=== PATIENT | male | born 1965 | race Caucasian/White ===

== ENCOUNTER → 2017-04-17 | Outpatient (CLI) | payer BC ==
[2017-04-17 09:52] LABS: ESTIMATED AVERAGE GLUCOSE 143 mg/dl; HA1C FLAG Normal (Normal)
[2017-04-17 09:59] LABS: CHOLESTEROL/HDL RATIO 3.4; THYROID STIMULATING HORMONE 1.47 uIu/ml (0.300-4.500)
== END | disposition home or self-care (01) ==
LOC: C.LAB1850 07:14
PROVIDERS: ATTEND Nurse Practitioner Family
DX: E11.65 Type 2 diabetes mellitus with hyperglycemia (principal)

== ENCOUNTER → 2017-09-09 | Outpatient (CLI) | payer BC ==
[2017-09-10 07:44] LABS: ESTIMATED AVERAGE GLUCOSE 143 mg/dl; HA1C FLAG Normal (Normal)
== END | disposition home or self-care (01) ==
LOC: C.LAB1850 15:23
PROVIDERS: ATTEND Nurse Practitioner Family
DX: E11.65 Type 2 diabetes mellitus with hyperglycemia (principal)

== ENCOUNTER 2017-11-02 14:09 | Emergency (ER) | payer OTHER, BC ==
[~2017-11-02] VITALS: Ht 180.3 cm; Wt 80.0 kg
[2017-11-02 14:13] VITALS: TEMP 36.6; Ht 180.3 cm; Wt 80.0 kg
[2017-11-02] MEDS ORDERED: KETOROLAC TROMETHAMINE 60 MG/2 ML VIAL IM STA (14:37)
--- NOTE | 2017-11-02 14:46 | EMERGENCY ROOM VISIT NOTE ---
ED Visit Note First contact with patient: 14:24 CHIEF COMPLAINT: "My back" HISTORY OF PRESENT ILLNESS: This 52-year-old male patient presents to the emergency department, ambulatory, complaining of pain in the low back which began 3 days ago after an injury at work. The patient states he was pulling on a water softener take which was approximately 180 pounds, and when he stepped on the top step, it was icy and he slipped. He states he pulled the muscles in his back. He has been working over the past 2 days, but states today as he has been lying still and having decreased activity, the pain has been worsening. He does report a history of back injury several years ago which also occurred at work , which was very similar in nature to this injury. He has taken 2 doses of 600 mg ibuprofen per day without relief of the pain. He did not contact HR at the time of the injury, as he did not feel that it is as severe as it is now. The patient denies any loss of control of their bowel or bladder functions. There has been no leg numbness or weakness, and no change in sensation. No nausea or vomiting or abdominal pain. No chest pain or shortness of breath. No dysuria or increased urinary frequency. REVIEW OF SYSTEMS: A 10 system review of systems was performed with positives and pertinent negatives listed in the history of present illness. All other systems were reviewed and are negative. ALLERGIES: Bee sting MEDICATIONS: Metformin, glimepiride PMH: Diabetes SOCIAL HISTORY: The patient lives locally with family. He denies drug, alcohol use. He admits to smoking approximately one pack of cigarettes per day. PHYSICAL EXAM: VITALS: Vitals are noted on the nurse's note and reviewed by myself. Vital signs stable. GENERAL: This is a 52-year-old white male, in no acute distress, nondiaphoretic , well-developed well-nourished. SKIN: The skin was without rashes, erythema, edema, or bruising. Capillary refill less than 2 seconds. NECK: Supple without nuchal rigidity. No cervical spine tenderness. No paraspinous muscle tenderness. HEART: Regular rate and rhythm without murmurs gallops or rubs. LUNGS: Clear to auscultation bilaterally without wheezes, rales or rhonchi. ABDOMEN: Positive bowel sounds x 4. Normal tympanic percussion. Soft, nontender, without masses or organomegaly. Gallo sign negative. MUSCULOSKELETAL: No muscle atrophy, erythema, or edema noted of the back. There is no tenderness over the lumbar spinous processes. There is mild tenderness over the paraspinous muscles bilaterally. There is no tenderness over the thoracic spine, but there is tenderness of the paraspinous muscles. There are muscle spasms present. The patient is slow to move around with maximum tenderness with position changes. Positive straight leg raise test. NEURO: Patient was alert and oriented to person place and time. Normal sensation to light and sharp touch. Deep tendon reflexes 2+ in the lower extremities. Dorsalis pedis pulse 2+ bilaterally. Strength 5/5 and equal in the bilateral lower extremities. RADIOLOGY: LUMBAR SPINE 5 VIEWS CLINICAL HISTORY: Low back pain. FINDINGS: 5 views of the lumbar spine are obtained. No prior studies are available for comparison at the time of dictation. The skeletal structures are osteopenic. There is no radiographic evidence of fracture or malalignment. Vertebral body height and alignment are maintained. The transverse and spinous processes are intact. There is no evidence of spondylolysis. Tiny anterior osteophytes are seen throughout. Mild to moderate disc space narrowing is seen at L5-S1. The remaining disc spaces are maintained. The visualized bony pelvis appears intact. There is a nonobstructed abdominal bowel gas pattern. Moderate constipation is observed. Atherosclerotic calcification is noted in the abdominal aorta. IMPRESSION: 1. No acute bony abnormality is seen involving the lumbosacral spine. 2. Osteopenia and degenerative change as above. Electronically signed by: Micah Garcia M.D. 11/02/2017 3:53 PM Dictated Date/Time: 11/02/2017 3:52 PM EMERGENCY DEPARTMENT COURSE: She was seen and evaluated as above. He was given 60 mg Toradol IM, and did not note significant improvement in his symptoms. I did offer narcotic pain medication, however the patient does not have anybody to drive him. I advised him that I happy to give him stronger pain medicine or muscle relaxers if he can find a motor bus driver, but he states that he cannot. X-ray was performed and reviewed by myself and radiologist with no acute bony abnormality noted. I do suspect based on the patient's mechanism of injury and symptoms he is experiencing at this time, that he is experiencing a lumbar strain, and he is having muscle spasms which are causing the discomfort. The patient did request pain medication multiple times, and I did offer to him if he is able to find a motor bus driver. The patient is unable to find a motor bus driver or alternatively ride home, so I am unwilling to provide him with pain medication. I did offer her some Tylenol and offered to send a prescription for muscle relaxers and short course of narcotics for him to take at home. The patient is agreeable to this plan. He was given 1 g of Tylenol and prescriptions were sent to the pharmacy. Discharge instructions were reviewed, the patient was discharged home in good condition. Blood Pressure Screening: Patient was found to have a slightly elevated blood pressure due to circumstances. I do not believe that the patient requires hypertension monitoring. Patient was found to have normal blood pressure on screening and does not require follow-up. Etiologies such as lumbago, sciatica, cauda equina, epidural abscess, osteomyelitis, fracture, aortic disease, metastatic disease, infection, renal colic, gastrointestinal, as well as others were entertained. DIAGNOSIS: Lumbar strain Current/Historical Medications Scheduled Glimepiride (Glimepiride), 1 MG PO DAILY Glimepiride (Glimepiride), 2 MG PO DAILY Metformin Hcl (Glucophage), 2,000 MG PO BID Scheduled PRN Cyclobenzaprine Hcl (Flexeril), 10 MG PO TID PRN for Muscle Spasms Oxycodone Ir (Roxicodone Ir), 1 TAB PO Q4H PRN for Pain Allergies Coded Allergies: BEE STING (Unverified Allergy, Unknown, SWELLING, 12/21/15) Vital Signs Date Time Temp Pulse Resp B/P (MAP) Pulse Ox O2 Delivery O2 Flow Rate FiO2 11/02/17 16:27 76 16 115/76 98 11/02/17 14:13 36.6 57 18 168/91 98 Room Air Medications Administered Medications (Trade) Dose Ordered Sig/Mathew Route Start Time Stop Time Status Last Admin Dose Admin Ketorolac Tromethamine (Toradol Inj) 60 mg NOW STAT IM 11/02/17 14:37 11/02/17 14:39 DC 11/02/17 14:47 60 MG Acetaminophen (Tylenol Tab) 1,000 mg NOW STAT PO 11/02/17 16:10 11/02/17 16:11 DC 11/02/17 16:24 1,000 MG Departure Information Impression Primary Impression: Strain of lumbar region Dispostion Home / Self-Care Condition GOOD Prescriptions Oxycodone Ir (Roxicodone Ir) 5 Mg Tab 1 TAB PO Q4H Y for Pain, #6 TAB For Initial Treatment Prov: Elaine Mojica PA-C 11/02/17 Cyclobenzaprine Hcl (FLEXERIL) 10 Mg Tab 10 MG PO TID Y for Muscle Spasms for 5 Days, #15 TAB Prov: Elaine Mojica PA-C 11/02/17 Referrals Aleln Kerr M.D. (PCP) Patient Instructions ED Sprain Strain Lumbar, My [facility] Additional Instructions You have been treated in the Emergency Department for Back Pain. You have been prescribed OxyIR to be used for pain control. This is a narcotic medication. You cannot drive or consume alcohol while on this medicine. This medicine should only be used for pain that cannot be controlled with over-the- counter pain medicines. You have been prescribed Flexeril (cyclobenzaprine) 1 tab orally, three times per day. Do NOT exceed 30 mg (3 tabs) per day. Take your first dose at bedtime as it can make you drowsy. Always take all medications as prescribed. For pain control, you can use the following hlrh-ghl-kuxlifh medicines (if >12 yo): Ibuprofen(Motrin, Advil) may be used for fever or pain. Use 600mg every six hours as needed. Take with food. Avoid using more than 2400mg in a 24 hour period. Do not use 2400mg per day for more than three consecutive days without physician direction. Prolonged inappropriate use can lead to stomach upset or ulcers. (AND/OR) Acetaminophen(Tylenol) may be used for fever or pain. Use 1000mg every six hours as needed. Avoid using more than 3000mg in a 24 hour period. *Alternate these medications every 3-4 hours to help with pain and inflammation. If this is an acute injury, ice can be applied to the area of pain for the first 3 days to help decrease pain and inflammation. After the first 3 days, a heating pad can be used over the area for continued soothing relief. Get plenty of rest, however, avoid lying or sitting still for too long, as this can further irritate the muscles in the back. You should not participate in significant activity, but instead stay active with walking and gentle stretching. You should schedule a follow-up appointment in 2-3 days with your Primary Care Provider/Worker's compensation provider for further evaluation and treatment of your back pain. Return to the Emergency Department if your current symptoms worsen despite treatment course outlined above, or if you develop any of the following symptoms : intractable pain despite aforementioned treatment course, loss of control of your bowel or bladder, numbness or tingling in your groin, or development of a fever. Problem Qualifiers Primary Impression: Strain of lumbar region Encounter type: initial encounter Qualified Codes: S39.012A - Strain of muscle, fascia and tendon of lower back, initial encounter
[2017-11-02] MEDS ORDERED: GLIM2TAB2 PO (15:34)
[2017-11-02] MEDS ORDERED: GLIM1TAB2 PO (15:34)
[2017-11-02] MEDS ORDERED: METF1000 PO (15:34)
--- NOTE | 2017-11-02 15:55 | DIAGNOSTIC IMAGING REPORT ---
LUMBAR SPINE 5 VIEWS CLINICAL HISTORY: Low back pain. FINDINGS: 5 views of the lumbar spine are obtained. No prior studies are available for comparison at the time of dictation. The skeletal structures are osteopenic. There is no radiographic evidence of fracture or malalignment. Vertebral body height and alignment are maintained. The transverse and spinous processes are intact. There is no evidence of spondylolysis. Tiny anterior osteophytes are seen throughout. Mild to moderate disc space narrowing is seen at L5-S1. The remaining disc spaces are maintained. The visualized bony pelvis appears intact. There is a nonobstructed abdominal bowel gas pattern. Moderate constipation is observed. Atherosclerotic calcification is noted in the abdominal aorta. IMPRESSION: 1. No acute bony abnormality is seen involving the lumbosacral spine. 2. Osteopenia and degenerative change as above. Electronically signed by: Micah Garcia M.D. 11/02/2017 3:53 PM Dictated Date/Time: 11/02/2017 3:52 PM
[2017-11-02] MEDS ORDERED: ACETAMINOPHEN 500 MG TAB PO STA (16:10)
[2017-11-02] MEDS ORDERED: OXYC1TAB3 PO (16:12)
[2017-11-02] MEDS ORDERED: CYCL10TA6 PO (16:12)
[2017-11-02 16:27] VITALS: BP 115/76; PULSE 76; O2SAT 98
== END 2017-11-02 16:28 | disposition home or self-care (01) ==
LOC: C.EDB 14:13 → C.EDD 16:28
DX: S39.012A Strain of muscle, fascia and tendon of lower back, initial encounter (principal); M85.88 Other specified disorders of bone density and structure, other site; W00.2XXA Other fall from one level to another due to ice and snow, initial encounter; Y99.0 Civilian activity done for income or pay; F17.210 Nicotine dependence, cigarettes, uncomplicated

== ENCOUNTER 2021-08-18 09:26 | Observation (INO) ==
[2021-08-18] MEDS ORDERED: MoRPHine SULFATE 4 MG/ML 1 ML CARP\\VIAL IV STA ×2 (10:02→11:44)
[2021-08-18] MEDS ORDERED: ONDANSETRON INJ 2 MG/ML 2 ML VIAL IV STA (10:02)
--- NOTE | 2021-08-18 10:14 | Emergency Department Note ---
History of Present Illness General Chief complaint: Back Injury/Pain Stated complaint: BACK INJURY Time Seen by Provider: 08/18/21 09:49 History of Present Illness Maximum Pain Intensity: 9 This is a 13-year-old male that presents to the emergency department via private vehicle accompanied by female with complaints of "back injury". The patient notes that yesterday and between the hours of 2 and 2:30 PM he was walking and felt something in his back. This pain occurred while at work. He notes that initially the pain was minor however throughout the working day increased. He notes that while driving back to this area to end his shift he went to exit the truck and the pain seemed much more severe. He points to the low back as a location of pain that he currently rates as a 9/10. He notes that he went home and did not move for 12 hours secondary to the severe pain in his back. He notes that at times it will radiate into his legs to the level of the knees but that is with certain movements. At rest the pain is located in the low back. Pain is much better with rest and laying flat. He notes pain at rest is an 8/10 and with moving is a 10/10. Patient denies any fevers, chills, chest pain, shortness of breath, abdominal pain. The patient denies any lower extremity weakness, bowel or bladder incontinence, numbness or tingling in genital region. Home Medications Medication Instructions Recorded Confirmed Type Accu-Chek Fastclix Lancet Drum #408 ea NS 03/03/20 06/30/21 Rx (lancets) Accu-Chek Guide Glucose Meter #1 ea NS 03/03/20 06/30/21 Rx (blood-glucose meter) Accu-Chek Guide test strips (blood #400 ea [place] 03/07/21 06/30/21 Rx sugar diagnostic) metformin 500 mg tablet,extended 1,000 mg PO BID 90 Days #360 tab 06/30/21 08/18/21 Rx release 24 hr aspirin 81 mg tablet,delayed 81 mg PO HS 08/18/21 08/18/21 History release (Aspirin Low Dose) atorvastatin 10 mg tablet (Lipitor) 10 mg PO HS 08/18/21 08/18/21 History glimepiride 1 mg tablet (Amaryl) 2 mg PO HS 08/18/21 08/18/21 History Allergies Allergy/AdvReac Type Severity Reaction Status Date / Time bee venom protein (honey bee) Allergy Unknown SWELLING Verified 08/18/21 11:48 codeine Allergy Unknown unk Verified 08/18/21 11:48 Past Med/Surg History Medical History Diabetes mellitus, type 2 Surgical History History of bronchoscopy History of cataract surgery Family History (Updated 06/18/18 @ 13:14 by Nadine Pradhan RN) Mother Family history of diabetes mellitus Father Family history of diabetes mellitus Family hx of colon cancer Other Family hx colonic polyps Social History Smoking Status: Current every day smoker Tobacco Type: Cigarettes Cigarettes Per Day: 20 CIG DAILY; Second Hand Exposure: No; Hx Alcohol Use: No Hx Substance Use: No Preferred Language: Bulgarian Communication Ability: Effective Coding Quality Coordinator Required: No Beliefs That Will Affect Care: None Feels Safe at Home: Yes Assistive Devices: Glasses Review of Systems A total of 10 systems reviewed and were otherwise negative Physical Exam Vital Signs Vital Signs - 24 hr 08/18/21 09:42 08/18/21 11:48 08/18/21 15:00 Temperature 36.7 C Temperature Source Oral Pulse Rate 92 H Pulse Rate [Right Finger] 64 73 Pulse Rhythm Regular Pulse Strength Normal Respiratory Rate 20 20 20 Respiratory Effort / Characteristics Non-Labored Spontaneous Non-Labored Spontaneous Non-Labored Spontaneous Respiratory Depth Normal Normal Normal Respiratory Pattern Regular Regular Regular Blood Pressure 114/80 Blood Pressure [Right Arm] 129/74 135/83 Blood Pressure Mean 91 Blood Pressure Mean [Right Arm] 92 100 Blood Pressure Position Sitting Pulse Oximetry 97 95 96 Oxygen Delivery Method Room Air Room Air Room Air Sepsis Recent Fever Within 48 Hours No Sepsis New/Unexplained Change in Mental Status No Sepsis Action Taken by Nursing No Action Required 08/18/21 15:20 Temperature Temperature Source Pulse Rate Pulse Rate [Right Finger] 63 Pulse Rhythm Pulse Strength Respiratory Rate 20 Respiratory Effort / Characteristics Non-Labored Spontaneous Respiratory Depth Normal Respiratory Pattern Regular Blood Pressure Blood Pressure [Right Arm] 147/86 H Blood Pressure Mean Blood Pressure Mean [Right Arm] 106 Blood Pressure Position Pulse Oximetry 94 Oxygen Delivery Method Room Air Sepsis Recent Fever Within 48 Hours Sepsis New/Unexplained Change in Mental Status Sepsis Action Taken by Nursing VITAL SIGNS - Vital signs and nursing notes were reviewed. Stable and afebrile. GENERAL - 56-year-old male appearing his stated age who is in no acute distress but appears to be in pain and has trouble ambulating secondary to pain. Communicates well with provider and answers questions appropriately. SKIN - Without rashes. No meningeal or petechial rash. HEAD - NC/AT. LUNGS - Chest wall symmetric without accessory muscle use, intercostals retractions, or central cyanosis. Normal vesicular breath sounds CTA B/L. No wheezes, rales, or rhonchi appreciated. CARDIAC - RRR with S1/S2. No murmur, rubs, or gallops appreciated. ABDOMEN - Abdominal contour normal without pulsations or visible masses. BS normoactive all four quadrants. No tenderness, palpable masses, hepatosplenomegaly, or ascites noted. EXTREMITIES - No clubbing or peripheral cyanosis. +5/5 strength noted in UE/LE bilaterally. MUSCULOSKELETALpatient with decreased movement of the spine to include flexion and rotation secondary to pain. Patient unable to sit upright without assistance secondary to pain. No weakness. NEUROLOGIC - Cranial nerves II through XII grossly intact. Sensory intact to light touch throughout. Achilles reflex within normal limits bilaterally. Patient unable to sit at bedside without significant pain therefore assessment of patellar reflex limited. No deficits on examination. Patient neurovascularly intact. PSYCH - A&Ox3 and cooperates fully with examiner. Pt is very pleasant and interacts well with examiner. Course Administered Medications Discontinued Medications Dexamethasone Sodium Phosphate (DexamethasonePf 10 Mg/Ml Vial) 10 mg IV NOW ONE Stop: 08/18/21 15:10 Last Admin: 08/18/21 15:19 Dose: 10 mg Documented by: [id number] Ketorolac Tromethamine (Ketorolac Tromethamine 15 Mg/Ml Vial) 15 mg IV NOW STA Stop: 08/18/21 15:10 Last Admin: 08/18/21 15:19 Dose: 15 mg Documented by: [id number] Lidocaine (Lidocaine 5% 1 Patch) 1 patch TD NOW STA Stop: 08/18/21 15:10 Last Admin: 08/18/21 15:19 Dose: 1 patch Documented by: [id number] Morphine Sulfate (Morphine Sulfate 4 Mg/Ml 1 Ml Carp\\Vial) 4 mg IV NOW STA Stop: 08/18/21 10:03 Last Admin: 08/18/21 10:15 Dose: 4 mg Documented by: [id number] Morphine Sulfate (Morphine Sulfate 4 Mg/Ml 1 Ml Carp\\Vial) 4 mg IV NOW STA Stop: 08/18/21 11:45 Last Admin: 08/18/21 11:47 Dose: 4 mg Documented by: [id number] Ondansetron HCl (Ondansetron Inj 2 Mg/Ml 2 Ml Vial) 4 mg IV NOW STA Stop: 08/18/21 10:03 Last Admin: 08/18/21 10:15 Dose: 4 mg Documented by: [id number] Medical Decision Making Laboratory Data Result diagrams: 08/18/21 10:10 08/18/21 10:10 Lab Results 08/18/21 08/18/21 08/18/21 Range/Units 10:10 10:10 15:28 WBC 11.82 H (4.8-10.8) K/uL RBC 5.19 (4.7-6.1) M/uL Hgb 15.8 (14.0-18.0) g/dL Hct 46.4 (42-52) % MCV 89.4 (80-100) fL MCH 30.4 (25-34) pg MCHC 34.1 (32-36) g/dL RDW Std Deviation 46.2 (36.4-46.3) fL RDW Coeff of [place] 13.9 (11.5-14.5) % Plt Count 275 (130-400) K/uL MPV 10.9 H (7.4-10.4) fL Immature Gran % (Auto) 0.1 % Neut % (Auto) 79.8 % Lymph % (Auto) 15.6 % [place] % (Auto) 3.8 % Eos % (Auto) 0.4 % Baso % (Auto) 0.3 % Neut # (Auto) 9.43 H (1.4-6.5) K/uL Lymph # (Auto) 1.84 (1.2-3.4) K/uL [place] # (Auto) 0.45 (0.11-0.59) K/uL Eos # (Auto) 0.05 (0-0.5) K/uL Baso # (Auto) 0.04 (0-0.2) K/uL Immature Gran # (Auto) 0.01 (0.00-0.02) K/uL Sodium 138 (136-145) mmol/L Potassium 4.1 (3.5-5.1) mmol/L Chloride 110 H (98-107) mmol/L Carbon Dioxide 20 L (21-32) mmol/L Anion Gap 9.0 (3-11) BUN 13 (7-18) mg/dl Creatinine 0.95 (0.6-1.4) mg/dl Est Cr Clr Drug Dosing 92.1 ml/min Est GFR ( Amer) 103.3 ml/min Est GFR (Non-Af Amer) 89.1 ml/min BUN/Creatinine Ratio 13.2 (10-20) Glucose 168 H (70-99) mg/dl Calcium 9.3 (8.5-10.1) mg/dl Total Bilirubin 0.5 (0.2-1) mg/dl AST 10 L (15-37) U/L ALT 26 (12-78) U/L Alkaline Phosphatase 102 (45-117) U/L Total Protein 7.1 (6.4-8.2) gm/dl Albumin 3.7 (3.4-5.0) gm/dl Globulin 3.4 (2.5-4.0) gm/dl Albumin/Globulin Ratio 1.1 (0.9-2) COVID-19 Eval Order Covid19 at [facility] Imaging Data Radiologist's Impression: Lumbar Spine X-Ray 08/18/21 10:02 XR lumbar spine min 4V routine HISTORY: 56 years-old Male Low back pain acute low back pain without reported trauma COMPARISON: Lumbar spine radiographs 11/02/2017 TECHNIQUE: 5 views of the lumbar spine FINDINGS: 5 lumbar type vertebral segments are present. No acute fracture, subluxation or endplate erosion. Mild to moderate intervertebral disc space narrowing at L5-S1 with mild spondylitic spurring and [id number] facet arthrosis. Ather osclerotic plaque of the aorta. Unremarkable soft tissues. IMPRESSION: 1. No acute fracture or subluxation. 2. Degenerative changes as above. ACT 112: Negative or not required by law. The above report was generated using voice recognition software. It may contain grammatical, syntax or spelling errors. Electronically signed by: George Mcadams M.D. 08/18/2021 11:08 AM Lumbar Spine MRI 08/18/21 12:14 MR lumbar spine wo con CLINICAL HISTORY: Lifting injury at work. Patient reports sudden onset of severe low back pain radiating to both thighs suggested, left greater than right. Patient states that he cannot walk. COMPARISON: None. TECHNIQUE: Multiplanar multisequence images of the Lumbar Spine were performed without contrast. FINDINGS: There is no evidence for vertebral body fracture. The heights of the vertebral bodies are maintained. The vertebral bodies are in anatomic alignment. Homogeneous marrow signal is seen without evidence for marrow edema or marrow replacement. T12-L1: The disc space height is maintained. There are no focal disc protrusions or extrusions identified. The thecal sac and epidural fat are maintained. The neural foramen are patent bilaterally. There is no evidence for nerve root encroachment. The facet joints are within normal limits. L1-2: The disc space height is maintained. There are no focal disc protrusions or extrusions identified. The thecal sac and epidural fat are maintained. The neural foramen are patent bilaterally. There is no evidence for nerve root encroachment. The facet joints are within normal limits. L2-3: The disc space height is maintained. There is a 7 to 8 mm disc protrusion/herniation centrally with inferior migration of disc fragment by approximately 7 mm as well. This produces encroachment on the thecal sac anteriorly 2 mm bulging annulus is also present with mild encroachment upon the neural foramen bilaterally. There is no evidence for nerve root encroachment. The facet joints are within normal limits. L3-4: The disc space height is maintained. There are no focal disc protrusions or extrusions identified. However, there is diffuse bulging annulus measuring 2 to 3 mm with minimal flattening of the thecal sac anteriorly and mild encroachment upon the neural foramen bilaterally. There is no evidence for nerve root encroachment. The facet joints are within normal limits. L4-5: The disc space height is maintained. There are no focal disc protrusions or extrusions identified. However, there is diffuse bulging annulus measuring 2 mm with minimal flattening the thecal sac anteriorly and mild encroachment upon the neural foramen bilaterally. There is no evidence for nerve root encroachment. The facet joints are within normal limits. L5-S1: There is moderate to marked disc space narrowing. There is a small central distribution measuring 4 mm. This produces mild impingement upon the thecal sac anteriorly. The neural foramen are patent bilaterally. There is no evidence for nerve root encroachment. There is mild hypertrophic facet joint disease bilaterally. IMPRESSION: 1. Moderately large central disc protrusion at L2-3 with inferior migration of the distal fragment. There is prominent encroachment upon the thecal sac anteriorly. There is also bulging of the annulus at this level. 2. Bulging annuli and mild bilateral foraminal encroachment are seen at L3-for L4-5. 3. Small central disc protrusion at L5-S1. ACT 112: Negative or not required by law. Electronically signed by: Thomas Giraldo M.D. 08/18/2021 2:32 PM MDM Narrative Patient was seen and evaluated as above in room B07. Review was performed of nursing notes and vital signs. I did review pertinent previous visits and patient history. After obtaining a thorough history and physical examination the above work up was performed. Patient presents to us today with severe low back pain. It appears this began yesterday. He is nontoxic on exam but does appear to be in pain. Vital signs stable. No evidence of cauda equina syndrome on exam or by history. Options of care were discussed with the patient. IV access was established. Labs were drawn. Patient was given IV morphine for pain, IV Zofran for any potential nausea. Pain returned and was given additional morphine. An x-ray was obtained of the L-spine. It was overall reassuring from a traumatic standpoint. However, will note that with the patient's persistence of pain despite IV analgesics and inability to sit at the bedside without assistance secondary to pain it is felt that an MRI of the L-spine is warranted. MRI was obtained and is as above. There is moderately large central disc protrusion at L2-L3 with inferior migration of the distal fragment. There is prominent enc roachment upon the thecal sac anteriorly. There is also bulging of the annulus at this level. Additional findings as noted within the report. I suspect that this is the main etiology of the patient's pain at this time. It is important note that clinically he is neurovascularly intact. The patient was reevaluated several times and was provided additional pain medication as well as steroids once this finding was identified. With the patient still having difficulty with sitting upright and ambulating without experiencing significant discomfort it is felt that further evaluation and management in the inpatient setting is warranted. Patient in agreement and amenable to plan. Case discussed with the hospitalist. At this time I will note that there is nobody health and nutrition specialist for unassigned orthopedic spine however it is important to note that patient does not have any finding on examination to suggest emergent neurovascular compromise. No evidence of cauda equina syndrome. Patient happy with plan of care. Case was discussed with the attending physician. GCS: 15 In the evaluation and treatment of this patient the following differential diagnoses were entertained: Fracture, dislocation, subluxation, contusion, UTI, pyelonephritis, AAA, cauda equina syndrome, herniated disc, strain, sprain, among others Impression & Plan Protrusion of lumbar intervertebral disc, Low back pain Discharge Plan Visit Data Chief Complaint: Back Injury/Pain Stated Complaint: BACK INJURY ED Provider: Vimal Dowd ED Midlevel Provider: Deuce Sethi Discharge Problem: Protrusion of lumbar intervertebral disc, Low back pain Forms Stand Alone Forms: [facility] [employer] Prescriptions Prescriptions: No Action (DME) lancets [Accu-Chek Fastclix Lancet Drum] Misc See Rx Instructions .ROUTE .MEDSUPPLY Qty: 408 RF: 3 (DME) blood-glucose meter [Accu-Chek Guide Glucose Meter] Misc See Rx Instructions .ROUTE .MEDSUPPLY Qty: 1 RF: 0 (DME) Accu-Chek Guide test strips Strip See Rx Instructions .ROUTE .MEDSUPPLY Qty: 400 RF: 3 metformin 500 mg tablet extended release 24 hr 1,000 mg PO BID 90 Days Qty: 360 RF: 1 aspirin [Aspirin Low Dose] 81 mg Tablet,Delayed Release (Dr/Ec) 81 mg PO HS RF: 0 atorvastatin [Lipitor] 10 mg tablet 10 mg PO HS RF: 0 glimepiride [Amaryl] 1 mg tablet 2 mg PO HS RF: 0 Referrals Referrals: Allen Kerr III, MD [Primary Care Provider] -
[2021-08-18 10:21] LABS: Basophils # (auto) 0.04 K/uL (0-0.2); Basophils % (auto) 0.3 %; Eosinophils # (auto) 0.05 K/uL (0-0.5); Eosinophils % (auto) 0.4 %; Hematocrit (blood only) 46.4 % (42-52); Hemoglobin 15.8 g/dL (14.0-18.0); Immature Granulocytes # (auto) 0.01 K/uL (0.00-0.02); Immature Granulocytes % (auto) 0.1 %; Lymphocytes # (auto) 1.84 K/uL (1.2-3.4); Lymphocytes % (auto) 15.6 %; Mean Corpuscular Hemoglobin 30.4 pg (25-34); Mean Corpuscular Hgb Conc 34.1 g/dL (32-36); Mean Corpuscular Volume 89.4 fL (80-100); Mean Platelet Volume 10.9 fL (7.4-10.4); Monocytes # (auto) 0.45 K/uL (0.11-0.59); Monocytes % (auto) 3.8 %; Neutrophils # (auto) 9.43 K/uL (1.4-6.5); Neutrophils % (auto) 79.8 %; Platelet Count 275 K/uL (130-400); RDW Coefficient of Variation 13.9 % (11.5-14.5); RDW Standard Deviation 46.2 fL (36.4-46.3); Red Blood Count 5.19 M/uL (4.7-6.1); White Blood Count 11.82 K/uL (4.8-10.8)
[2021-08-18 10:39] LABS: Albumin Level 3.7 gm/dl (3.4-5.0); BUN Creatinine Ratio 13.2 (10-20); Calcium 9.3 mg/dl (8.5-10.1); Creatinine Clr Calc Pharmacy 92.1 ml/min; Est GFR (African American) 103.3 ml/min; Est GFR (Non-African American) 89.1 ml/min; Potassium 4.1 mmol/L (3.5-5.1)
[2021-08-18 10:42] LABS: Albumin Globulin Ratio 1.1 (0.9-2); Bilirubin,Total 0.5 mg/dl (0.2-1); Globulin 3.4 gm/dl (2.5-4.0); Total Protein 7.1 gm/dl (6.4-8.2)
--- NOTE | 2021-08-18 11:10 | XRay Report ---
XR lumbar spine min 4V routine HISTORY: 56 years-old Male Low back pain acute low back pain without reported trauma COMPARISON: Lumbar spine radiographs 11/02/2017 TECHNIQUE: 5 views of the lumbar spine FINDINGS: 5 lumbar type vertebral segments are present. No acute fracture, subluxation or endplate erosion. Mil d to moderate intervertebral disc space narrowing at L5-S1 with mild spondylitic spurring and mild-to -moderate facet arthrosis. Atherosclerotic plaque of the aorta. Unremarkable soft tissues. IMPRESSION: 1. No acute fracture or subluxation. 2. Degenerative changes as above. ACT 112: Negative or not required by law. The above report was generated using voice recognition software. It may contain grammatical, syntax o r spelling errors. Electronically signed by: George Mcadams M.D. 08/18/2021 11:08 AM
--- NOTE | 2021-08-18 14:33 | Magnetic Resonance Report ---
MR lumbar spine wo con CLINICAL HISTORY: Lifting injury at work. Patient reports sudden onset of severe low back pain radia ting to both thighs suggested, left greater than right. Patient states that he cannot walk. COMPARISON: None. TECHNIQUE: Multiplanar multisequence images of the Lumbar Spine were performed without contrast. FINDINGS: There is no evidence for vertebral body fracture. The heights of the vertebral bodies are maintained. The vertebral bodies are in anatomic alignment. Homogeneous marrow signal is seen without evidence f or marrow edema or marrow replacement. T12-L1: The disc space height is maintained. There are no focal disc protrusions or extrusions ident ified. The thecal sac and epidural fat are maintained. The neural foramen are patent bilaterally. Th ere is no evidence for nerve root encroachment. The facet joints are within normal limits. L1-2: The disc space height is maintained. There are no focal disc protrusions or extrusions identi fied. The thecal sac and epidural fat are maintained. The neural foramen are patent bilaterally. The re is no evidence for nerve root encroachment. The facet joints are within normal limits. L2-3: The disc space height is maintained. There is a 7 to 8 mm disc protrusion/herniation centrall y with inferior migration of disc fragment by approximately 7 mm as well. This produces encroachment on the thecal sac anteriorly 2 mm bulging annulus is also present with mild encroachment upon the ne ural foramen bilaterally. There is no evidence for nerve root encroachment. The facet joints are with in normal limits. L3-4: The disc space height is maintained. There are no focal disc protrusions or extrusions identi fied. However, there is diffuse bulging annulus measuring 2 to 3 mm with minimal flattening of the t hecal sac anteriorly and mild encroachment upon the neural foramen bilaterally. There is no evidence for nerve root encroachment. The facet joints are within normal limits. L4-5: The disc space height is maintained. There are no focal disc protrusions or extrusions identi fied. However, there is diffuse bulging annulus measuring 2 mm with minimal flattening the thecal sa c anteriorly and mild encroachment upon the neural foramen bilaterally. There is no evidence for nerv e root encroachment. The facet joints are within normal limits. L5-S1: There is moderate to marked disc space narrowing. There is a small central distribution gerardo uring 4 mm. This produces mild impingement upon the thecal sac anteriorly. The neural foramen are pa tent bilaterally. There is no evidence for nerve root encroachment. There is mild hypertrophic facet joint disease bilaterally. IMPRESSION: 1. Moderately large central disc protrusion at L2-3 with inferior migration of the distal fragment. T here is prominent encroachment upon the thecal sac anteriorly. There is also bulging of the annulus a t this level. 2. Bulging annuli and mild bilateral foraminal encroachment are seen at L3-for L4-5. 3. Small central disc protrusion at L5-S1. ACT 112: Negative or not required by law. Electronically signed by: Thomas Giraldo M.D. 08/18/2021 2:32 PM
[2021-08-18] MEDS ORDERED: dexAMETHasone**PF** 10 MG/ML VIAL IV ONE (15:09)
[2021-08-18] MEDS ORDERED: KETOROLAC TROMETHAMINE 15 MG/ML VIAL IV STA (15:09)
[2021-08-18] MEDS ORDERED: LIDOCAINE 5% 1 PATCH TD STA (15:09)
--- NOTE | 2021-08-18 17:17 | History & Physical Report ---
Date of Service August 18, 2021 Assessment & Plan (1) Protrusion of lumbar intervertebral disc: Plan: Acute with worsening of pain and inability to flex or get out of bed- no fractures - Currently not emergent - Attempt pain control and inflammation control - Scheduled Tylenol, Motrin, Valium PRN, Lidoderm patches and heat application, Decadron 4mg IV, Morphine 5mg IR PO if needed for severe pain - PT/OT evaluation when pain is controlled and return of function - If no improvement in 24-48 hours or clinical worsening- orthopaedics/spine consult - Bedrest with BRP for tonight - VTE prophy Lovenox and SCDs (2) Low back pain: Plan: as above (3) Cervical stenosis of spinal canal: Plan: Chronic without acute pain or radiculopathy - Follow as above (4) Smoker: Plan: 1PPD current smoker - declines any need for NicoDerm patch at this time (5) Type 2 diabetes mellitus: Plan: Hold metformin and amaryl at this time - start apsart sliding scale: CF 20 with ratio 1:15- - Follow with introduction of steroids - Goal <180 (6) Dyslipidemia: Plan: Continue statin - ASA for primary prevention on hold incase of surgical need - restart if symptoms medically manageable History of Present Illness Chief Complaint: severe back pain Primary Care Provider: Allen Kerr MD 56 YOM with past medical history of: HLD, DM II(on metformin), cataract surgery, chronic cervicalgia, and chronic low back pain, current 1 PPD smoker. 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 He has done chiropractor services with minimal relief in the past. He is able to normally get home and with Tylenol and heat therapy able to get his lower back to relax and continue with his activities and work. Yesterday patient's back started to tighten up and become uncomfortable and while he was walking felt a "pop" sensation in his lower back and pain got worse. He then drove back from [place] and back became more tight and unable to straighten up the whole way or walk. He crawled from his truck into his house and to bed. He did not get much relief from his heat or Tylenol and needed assistance getting dressed this morning. In the EMD he had X-rays and MRI of his lumbar spine performed. He was given, Toradol, Steroid, and Lidocaine patch with improvement in his pain at re st, but upon trying to stand up severe return of pain. Hospitalist service was consulted for admission. MRI interpreted as: central disc protrusion at L2-L3 with inferior migration of distal fragment and encroachment upon the thecal sac with bulging of the annulus, L3-L5 also with bulging annuli and foraminal encroachment, L5-S1 with small central disc protrusion. Patient is not experiencing any radiculopathy or weakness in his legs. He has maintained bowel and bladder function. Pain is improving at this time. Patient will be observed for next 24-48 hours of control of pain and symptoms. Patient COVID test on admission is: NEGATIVE Allergies Allergy/AdvReac Type Severity Reaction Status Date / Time bee venom protein (honey bee) Allergy Unknown SWELLING Verified 08/18/21 11:48 codeine Allergy Unknown unk Verified 08/18/21 11:48 Home Medications Medication Instructions Recorded Confirmed Type Accu-Chek Fastclix Lancet Drum #408 ea NS 03/03/20 06/30/21 Rx (lancets) Accu-Chek Guide Glucose Meter #1 ea NS 03/03/20 06/30/21 Rx (blood-glucose meter) Accu-Chek Guide test strips (blood #400 ea NS 03/07/21 06/30/21 Rx sugar diagnostic) metformin 500 mg tablet,extended 1,000 mg PO BID 90 Days #360 tab 06/30/21 08/18/21 Rx release 24 hr aspirin 81 mg tablet,delayed 81 mg PO HS 08/18/21 08/18/21 History release (Aspirin Low Dose) atorvastatin 10 mg tablet (Lipitor) 10 mg PO HS 08/18/21 08/18/21 History glimepiride 1 mg tablet (Amaryl) 2 mg PO HS 08/18/21 08/18/21 History Past Med/Surg History Medical History Cervical stenosis of spinal canal Diabetes mellitus, type 2 Left shoulder pain Smoker Surgical History History of bronchoscopy History of cataract surgery Family History Mother Family history of diabetes mellitus Father Family history of diabetes mellitus Family hx of colon cancer Other Family hx colonic polyps Social History Smoking Status: Current every day smoker Tobacco Type: Cigarettes Cigarettes Per Day: 15; Second Hand Exposure: No; Do You Dip or Chew Tobacco: No; Tobacco Cessation Education Requested by Patient: No Hx Alcohol Use: No Hx Substance Use: No Preferred Language: Bulgarian Communication Ability: Effective Reception Clerk Required: No Beliefs That Will Affect Care: None Current Living Situation: Alone and Significant Other Other Information That Helps Us Care for You: No Feels Safe at Home: Yes Safety Concerns: Feels Safe At This Time Assistive Devices: None Review of Systems Review of Systems: REVIEW OF SYSTEMS: Constitutional: No fever, sweats or chills Eyes: No diplopia, no worsening or blurred vision ENT: normal hearing, no trouble swallowing Respiratory: (+) smoker No cough, sputum, dyspnea at rest or on exertion Cardiovascular: No chest pain, tightness or palpitations Abdomen: No pain, nausea, vomiting, diarrhea or constipation Musculoskeletal: (+) neck, shoulder and lower back pain, No joint pain, calf pain, swelling Neurologic: no weakness, numbness/tingling, or balance problems Psychiatric: No anxiety or depression Skin: No rash or itch Physical Exam Physical Exam: PHYSICAL EXAM: General: awake, alert, no apparent distress Head: Normocephalic, atraumatic ENT: PERRL, EOMI, no pharyngeal exudate, mucous membranes moist Neuro: AAO x 3, speech clear and appropriate, strength intact bilaterally 5/5, sensation intact and equal all extremities and dermatomes, no pronator drift Chest: equal rise and fall of the chest, no accessory muscle use, no heaves or thrills, Clear to auscultation, on room air, Cardiac: Regular rate and rhythm, telemetry reviewed, skin warm dry, cap refill <3 seconds, peripheral pulses +2 no JVD, no murmur, no edema GI: NABS x 4 quadrants, soft, nontender to palpation, no rebound, guarding or tenderness : Spontaneously voiding, no pain, no CVA tenderness, MSK: full ROM of neck, no radiculopathy to hands or shoulders, strength 5/5 uppers. Pain at start of lumbar region, without step-offs or erythema, surrounding muscles are relaxed, pain with palpation ~L3-L4. No radiculopathy down legs, pelvis stable, flexion of quads normal, no loss of muscle bulk. Sensation through legs, medially and laterally intact, sensation to feet and ankles intact medially and laterally, flexion and extension of knees and ankles intact. Any attempt at trying to sit up or flex abdomen and back muscles has sharp pain to lumbar region. Psych: Normal mood and affect Skin: no rash or erythema Results & Data Results & Data ([facility]) Vital Signs (Past 12 Hours) Vital Signs Temp Pulse Pulse Resp BP BP Pulse Ox 08/18/21 15:20 63 20 147/86 H 94 08/18/21 15:00 73 20 135/83 96 08/18/21 11:48 64 20 129/74 95 08/18/21 09:42 36.7 C 92 H 20 114/80 97 Laboratory Results Abnormal lab results 08/18/21 08/18/21 Range/Units 10:10 10:10 WBC 11.82 H (4.8-10.8) K/uL MPV 10.9 H (7.4-10.4) fL Neut # (Auto) 9.43 H (1.4-6.5) K/uL Chloride 110 H (98-107) mmol/L Carbon Dioxide 20 L (21-32) mmol/L Glucose 168 H (70-99) mg/dl AST 10 L (15-37) U/L Diagnostic Findings Lumbar Spine X-Ray 08/18/21 10:02 XR lumbar spine min 4V routine HISTORY: 56 years-old Male Low back pain acute low back pain without reported trauma COMPARISON: Lumbar spine radiographs 11/02/2017 TECHNIQUE: 5 views of the lumbar spine FINDINGS: 5 lumbar type vertebral segments are present. No acute fracture, subluxation or endplate erosion. Mild to moderate intervertebral disc space narrowing at L5-S1 with mild spondylitic spurring and [id number] facet arthrosis. Ath erosclerotic plaque of the aorta. Unremarkable soft tissues. IMPRESSION: 1. No acute fracture or subluxation. 2. Degenerative changes as above. ACT 112: Negative or not required by law. The above report was generated using voice recognition software. It may contain grammatical, syntax or spelling errors. Electronically signed by: George Mcadams M.D. 08/18/2021 11:08 AM Lumbar Spine MRI 08/18/21 12:14 MR lumbar spine wo con CLINICAL HISTORY: Lifting injury at work. Patient reports sudden onset of severe low back pain radiating to both thighs suggested, left greater than right. Patient states that he cannot walk. COMPARISON: None. TECHNIQUE: Multiplanar multisequence images of the Lumbar Spine were performed without contrast. FINDINGS: There is no evidence for vertebral body fracture. The heights of the vertebral bodies are maintained. The vertebral bodies are in anatomic alignment. Homogeneous marrow signal is seen without evidence for marrow edema or marrow replacement. T12-L1: The disc space height is maintained. There are no focal disc protrusions or extrusions identified. The thecal sac and epidural fat are maintained. The neural foramen are patent bilaterally. There is no evidence for nerve root encroachment. The facet joints are within normal limits. L1-2: The disc space height is maintained. There are no focal disc protrusions or extrusions identified. The thecal sac and epidural fat are maintained. The neural foramen are patent bilaterally. There is no evidence for nerve root encroachment. The facet joints are within normal limits. L2-3: The disc space height is maintained. There is a 7 to 8 mm disc protrusion/herniation centrally with inferior migration of disc fragment by approximately 7 mm as well. This produces encroachment on the thecal sac anteriorly 2 mm bulging annulus is also present with mild encroachment upon the neural foramen bilaterally. There is no evidence for nerve root encroachment. The facet joints are within normal limits. L3-4: The disc space height is maintained. There are no focal disc protrusions or extrusions identified. However, there is diffuse bulging annulus measuring 2 to 3 mm with minimal flattening of the thecal sac anteriorly and mild encroachment upon the neural foramen bilaterally. There is no evidence for nerve root encroachment. The facet joints are within normal limits. L4-5: The disc space height is maintained. There are no focal disc protrusions or extrusions identified. However, there is diffuse bulging annulus measuring 2 mm with minimal flattening the thecal sac anteriorly and mild encroachment upon the neural foramen bilaterally. There is no evidence for nerve root encroachment. The facet joints are within normal limits. L5-S1: There is moderate to marked disc space narrowing. There is a small central distribution measuring 4 mm. This produces mild impingement upon the thecal sac anteriorly. The neural foramen are patent bilaterally. There is no evidence for nerve root encroachment. There is mild hypertrophic facet joint disease bilaterally. IMPRESSION: 1. Moderately large central disc protrusion at L2-3 with inferior migration of the distal fragment. There is prominent encroachment upon the thecal sac anteriorly. There is also bulging of the annulus at this level. 2. Bulging annuli and mild bilateral foraminal encroachment are seen at L3-for L4-5. 3. Small central disc protrusion at L5-S1. ACT 112: Negative or not required by law. Electronically signed by: Thomas Giraldo M.D. 08/18/2021 2:32 PM Medications Administered Home Medications Accu-Chek Fastclix Lancet Drum (lancets) #408 ea NS 03/03/20 [Rx Confirmed 06/14 05/03] Accu-Chek Guide Glucose Meter (blood-glucose meter) #1 ea NS 03/03/20 [Rx Confirmed 06/30/21] Accu-Chek Guide test strips (blood sugar diagnostic) #400 ea NS 03/07/21 [Rx Confirmed 06/30/21] metformin 500 mg tablet,extended release 24 hr 1,000 mg PO BID 90 Days #360 tab 06/30/21 [Rx Confirmed 08/18/21] aspirin 81 mg tablet,delayed release (Aspirin Low Dose) 81 mg PO HS 08/18/21 [History Confirmed 08/18/21] atorvastatin 10 mg tablet (Lipitor) 10 mg PO HS 08/18/21 [History Confirmed 08/18/21] glimepiride 1 mg tablet (Amaryl) 2 mg PO HS 08/18/21 [History Confirmed 08/18/21] Active Medications Acetaminophen (Acetaminophen 325 Mg Tab) 650 mg PO Q6 EMBER Stop: 09/17/21 17:59 Miscellaneous (Remove Lidoderm Patch) 1 ea N/A DAILY@2100 EMBER Stop: 09/17/21 20:59 Pantoprazole Sodium (Pantoprazole 40 Mg Tab) 40 mg PO DAILY EMBER Stop: 09/17/21 17:14 Discontinued Medications Dexamethasone Sodium Phosphate (DexamethasonePf 10 Mg/Ml Vial) 10 mg IV NOW ONE Stop: 08/18/21 15:10 Last Admin: 08/18/21 15:19 Dose: 10 mg Documented by: [id number] Ketorolac Tromethamine (Ketorolac Tromethamine 15 Mg/Ml Vial) 15 mg IV NOW STA Stop: 08/18/21 15:10 Last Admin: 08/18/21 15:19 Dose: 15 mg Documented by: [id number] Lidocaine (Lidocaine 5% 1 Patch) 1 patch TD NOW STA Stop: 08/18/21 15:10 Last Admin: 08/18/21 15:19 Dose: 1 patch Documented by: [id number] Morphine Sulfate (Morphine Sulfate 4 Mg/Ml 1 Ml Carp\\Vial) 4 mg IV NOW STA Stop: 08/18/21 10:03 Last Admin: 08/18/21 10:15 Dose: 4 mg Documented by: [id number] Morphine Sulfate (Morphine Sulfate 4 Mg/Ml 1 Ml CarpVial) 4 mg IV NOW STA Stop: 08/18/21 11:45 Last Admin: 08/18/21 11:47 Dose: 4 mg Documented by: [id number] Ondansetron HCl (Ondansetron Inj 2 Mg/Ml 2 Ml Vial) 4 mg IV NOW STA Stop: 08/18/21 10:03 Last Admin: 08/18/21 10:15 Dose: 4 mg Documented by: [id number] ECG Additional Comments: NONE Code Status & VTE Plan Code Status CODE: FULL VTE: SCDs, Lovenox 40mg subq q24 VTE Prophylaxis Plan VTE Prophylaxis will be ordered: Yes Supervising Physician Co-Signing Physician Notes Attending Attestation and Admission Note: Pt seen/examined, chart reviewed, care plan d/w TED Segura. I agree w/ the flood components of his documentation. 56yo with T2DM, tobacco use and long-standing lumbar back pain who presents with severe, acute on chronic low back pain. 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 He felt a "pop" in his l-spine region and since has had excruciating pain in that region. Has paresthesias b/l of the anterior thighs. No motor weakness, bowel incontinence or bladder incontinence. PMH/PSH/allergies/meds/sochx/famhx - reviewed VSS, afebrile gen - NAD, but with moving in bed he has severe pain in back heart - RRR, s1 s2, no murmur lungs - CTA b/l abd - soft NT ND BS+ ext - no edema, pulses 2+ b/l neuro - strength hip flexion, ankle dorsiflexion/plantarflexion, and knee extension all 5/5; DTRs - patellar, achilles 2+ b/l musculo - severe l-spine pain and paraspinal pain on left to palpation; flexing the left hip causes severe pain in back labs reviewed imaging reviewed A/P: 1. acute/chronic low back pain 2. large disc herniation at L2-L3 on MRI lumbar spine with additional levels of DJD/herniated discs/foraminal stenosis; the L2-L3 disc herniation is the likely culprit of his acute presentation fortunately his neuro exam is intact 3. T2DM 4. tobacco use agree with IV dexamethasone, tylenol, toradol prn, lidoderm patches, heat (k-pad if available), muscle relaxer, narcotics prn will need bowel regimen add lantus to his novolog for DM control as he will be hyperglycemic w/ steroids; old oral agents nicoderm patch if desired if he fails to improve and/or achieve pain control with the above measures he will need orthopedic consultation for consideration of surgical intervention given the size of the L2-L3 herniation Riley Smith MD PG Care Time/CCT Total # of Minutes Spent Total Time Spent with Patient: Total time spent is greater than 50% in coordination of care (as documented) at patient's floor/unit and/or counseling patient: Coding Level of Care Code 11177 Initial Inpt Care Lvl 2 Diagnoses Protrusion of lumbar intervertebral disc M51.26 Low back pain M54.50 Cervical stenosis of spinal canal M48.02 Smoker F17.200 Type 2 diabetes mellitus E11.9 Dyslipidemia E78.5
[2021-08-18] MEDS ORDERED: diazePAM 5 MG TABLET PO PRN (18:45)
[2021-08-18] MEDS ORDERED: oxyCODONE HCL IR 5 MG TAB (IMMEDIATE RELEASE) PO PRN (18:45)
[2021-08-18] MEDS ORDERED: DEXTROSE 50% 50 ML SYRINGE IV PRN (18:45)
[2021-08-18] MEDS ORDERED: GLUCOSE 10 TABS/TUBE PO PRN (18:45)
[2021-08-18] MEDS ORDERED: GLUCOSE 40% GEL 15 GM TUBE PO PRN (18:45)
[2021-08-18] MEDS ORDERED: GLUCAGON FOR INJ 1 MG VIAL SQ PRN (18:45)
[2021-08-18] MEDS ORDERED: CARBOHYDRATES FOR HYPOGLYCEMIA PO PRN (18:45)
[2021-08-18] MEDS ORDERED: oxyCODONE HCL IR 5 MG TAB (IMMEDIATE RELEASE) ONE (19:12)
[2021-08-18] MEDS: ACETAMINOPHEN 325 MG TAB PO SCH (19:15)
[2021-08-18] MEDS ORDERED: ENOXAPARIN INJ 40 MG/0.4 ML SYR SQ SCH (20:00)
[2021-08-18] MEDS ORDERED: dexAMETHasone 4 MG in SYRINGE 0 ML IV SCH (20:00)
[2021-08-18 20:09] LABS: Appearance Urine Clear (Clear); Bacteria Urine Automated Negative (Negative); Bilirubin Urine Negative (Negative); Blood Urine Trace (Negative); Color Urine Dark Yellow; Glucose Urine UA 3+ (Negative); Ketones Urine 2+ (Negative); Leukocyte Esterase Urine Negative (Negative); Nitrite Urine Negative (Negative); Protein Urine Negative (Negative); RBC Urine Automated 0-4 /hpf (0-4); Specific Gravity Urine 1.027 (1.000-1.030); Urobilinogen Urine Negative (Negative)
[2021-08-18] MEDS: IBUPROFEN 600 MG TAB PO SCH (20:58)
[2021-08-18] MEDS: PANTOprazole 40 MG TAB PO SCH (20:59)
[2021-08-18] MEDS: INSULIN ASPART 100 UNITS/ML 3 ML PEN SC SCH (21:00)
[2021-08-18] MEDS ORDERED: ATORVASTATIN 10 MG TAB PO SCH (21:00)
[2021-08-19] MEDS: dexAMETHasone 4 MG in SYRINGE 0 ML IV SCH ×2 (00:45→09:26)
[2021-08-19] MEDS: ACETAMINOPHEN 325 MG TAB PO SCH ×3 (00:48→12:29)
[2021-08-19] MEDS: IBUPROFEN 600 MG TAB PO SCH ×2 (04:32→12:29)
[2021-08-19 06:01] LABS: Basophils # (auto) 0.01 K/uL (0-0.2); Basophils % (auto) 0.1 %; Hematocrit (blood only) 46.9 % (42-52); Hemoglobin 15.7 g/dL (14.0-18.0); Immature Granulocytes # (auto) 0.02 K/uL (0.00-0.02); Immature Granulocytes % (auto) 0.2 %; Lymphocytes # (auto) 1.09 K/uL (1.2-3.4); Lymphocytes % (auto) 10.4 %; Mean Corpuscular Hemoglobin 30.6 pg (25-34); Mean Corpuscular Hgb Conc 33.5 g/dL (32-36); Mean Corpuscular Volume 91.4 fL (80-100); Mean Platelet Volume 11.4 fL (7.4-10.4); Monocytes # (auto) 0.14 K/uL (0.11-0.59); Monocytes % (auto) 1.3 %; Platelet Count 249 K/uL (130-400); RDW Coefficient of Variation 13.7 % (11.5-14.5); Red Blood Count 5.13 M/uL (4.7-6.1); White Blood Count 10.46 K/uL (4.8-10.8)
[2021-08-19] MEDS ORDERED: HYDROmorphone INJ 0.5 MG/0.5 ML SYR IV PRN (06:37)
[2021-08-19 06:44] LABS: BUN Creatinine Ratio 24.6 (10-20); Calcium 8.9 mg/dl (8.5-10.1); Creatinine Clr Calc Pharmacy 90.5 ml/min; Est GFR (African American) 103.3 ml/min; Est GFR (Non-African American) 89.1 ml/min; Magnesium 2.5 mg/dl (1.8-2.4); Potassium 4.3 mmol/L (3.5-5.1)
[2021-08-19] MEDS ORDERED: LIDOCAINE 5% 1 PATCH TD SCH (09:00)
[2021-08-19] MEDS ORDERED: NICOTINE 14 MG/24 HR PATCH TD SCH (09:00)
[2021-08-19] MEDS ORDERED: INSULIN GLARGINE SOLOSTAR 100 UNITS/ML 3 ML PEN SC SCH (09:00)
[2021-08-19] MEDS: PANTOprazole 40 MG TAB PO SCH (09:26)
[2021-08-19] MEDS: INSULIN ASPART 100 UNITS/ML 3 ML PEN SC SCH ×2 (09:35→13:04)
--- NOTE | 2021-08-19 13:26 | Discharge Summary ---
Date of Service August 19, 2021 Admission HPI Per Admitting Provider 56 YOM with past medical history of: HLD, DM II(on metformin), cataract surgery, chronic cervicalgia, and chronic low back pain, current 1 PPD smoker. 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 He has done chiropractor services with minimal relief in the past. He is able to normally get home and with Tylenol and heat therapy able to get his lower back to relax and continue with his activities and work. Yesterday patient's back started to tighten up and become uncomfortable and while he was walking felt a "pop" sensation in his lower back and pain got worse. He then drove back [facility] and back became more tight and unable to straighten up the whole way or walk. He crawled from his truck into his house and to bed. He did not get much relief from his heat or Tylenol and needed assistance getting dressed this morning. In the EMD he had X-rays and MRI of his lumbar spine performed. He was given, Toradol, Steroid, and Lidocaine patch with improvement in his pain at rest, but upon trying to stand up severe return of pain. Hospitalist service was consulted for admission. MRI interpreted as: central disc protrusion at L2- L3 with inferior migration of distal fragment and encroachment upon the thecal sac with bulging of the annulus, L3-L5 also with bulging annuli and foraminal encroachment, L5-S1 with small central disc protrusion. Patient is not experiencing any radiculopathy or weakness in his legs. He has maintained bowel and bladder function. Pain is improving at this time. Patient will be observed for next 24-48 hours of control of pain and symptoms. Patient COVID test on admission is: NEGATIVE Principal Diagnosis L2-3 HNP, intractable back pain Discharge Exam Constitutional WD/WN, vitals as above Eyes + anicteric sclerae Neck trachea midline, no thyromegaly Respiratory normal respiratory effort, lungs clear to auscultation Cardiovascular RRR, no murmur, no edema Chest (Breasts) Chest: normal inspection of chest Gastrointestinal (Abdomen) normal bowel sounds, soft, nontender, no hepatosplenomegaly Musculoskeletal Extremities: extremities normal to inspection; no cyanosis and no clubbing Skin no rashes, warm and dry Neurologic deep tendon reflexes 2+ bilaterally (in patellar and [place] sbilat), moves all extremities and awake; no focal motor deficits (5/5 strenght throughout LEs bilat) Motor/Sensory: no sensory deficit (intact to light touch throuhgout LEs bilat) Gait: no ataxic gait (normal gait) Psychiatric A+Ox3, euthymic affect Lymphatic no lymphedema Discharge Data Allergies Allergy/AdvReac Type Severity Reaction Status Date / Time bee venom protein (honey bee) Allergy Unknown SWELLING Verified 08/18/21 11:48 codeine Allergy Unknown unk Verified 08/18/21 11:48 Consultations 08/18/21 15:42 ED Decision to Admit Stat Ordered Studies 08/18/21 12:14 MR lumbar spine wo con Stat Hospital Course (1) Protrusion of lumbar intervertebral disc: Acute with worsening of pain and inability to flex or get out of bed- secondary to pain No evidence of focal neuro deficit or cauda equina both clinically or on imaging After receiving IV dexamethasone, lidocaine patch, spare opioids, Pt doing very well on day of discharge, pain almost completely gone, he is ambulating as fast as I do around the triplett without any difficulties. Seen by PT and OT, cleared for dc to home dc to home on Medrol dose pack, lidocaine patches, Tylenol prn, and prn Percocet f/u with SPine Surgery as outpt in case not improving or worsening again but no indication for inpatient SPine Surgery eval (2) Low back pain: as above (3) Cervical stenosis of spinal canal: Chronic without acute pain or radiculopathy - Follow as above (4) Smoker: 1PPD current smoker - declines any need for NicoDerm patch at this time (5) Type 2 diabetes mellitus: continue home metformin XR and glimepiride-he has a sliding scale for his glimepiride for use with hyperglycemia from the steroids (6) Dyslipidemia: Continue statin - ASA Dispo-much improved, dc to home Total Time Total Time Spent Total Time Spent (In Minutes): 35 min Discharge Plan Discharge Items Patient Disposition: Home - Self-Care Reason For Visit: BACK PAIN Discharge Diagnosis: Lumbar spine herniated disc,intractable pain Condition on Discharge: Good Activity: As commented below Lifting: No more than 5 pounds Bathing: No limitations Exercise/Sports: Wait until after follow-up appointment Driving/Machine Use: No driving after taking oxycodone Non-emergency contact: Primary Care Provider Call non-emergency contact if: you have any medication questions, your symptoms worsen, your pain is not controlled and your pain is worsening Follow-up/Referrals: Allen Kerr III, MD [Primary Care Provider] - (Please follow up within 1- 2 weeks.) Ernesto Martinez DO [Surgeon] - (Please call to schedule a hospital follow up appointment for your herniated disc. Make sure you ask if they accept your workman's compensation insurance. ) Diet: Carb Consistent or DM2 Addtl Attending Provider Instructions: You were admitted for intractable back pain and found to have a herniated disc of the lumbar spine. Your pain improved with steroids and pain medication. You do not need urgent surgery. Herniated discs can certainly resolve on their own over time. If you develop inability to walk, incontinence to your bowels or bladder, or loss of strength or sensation in your leg or legs, please contact your doctor right away. Please take the course of steroids called methylprednisolone to reduce the inflammation and pain in your back. This can make your blood glucose higher temporarily and you can continue to adjust your glimepiride for this. You can take Percocet (oxycodone/acetaminophen) for moderate to severe pain and Tylenol (acetaminophen) alone as needed for mild-moderate pain. You should remain out of work until seen by your doctor. Pending Studies at Discharge: No Stand-Alone Forms: [facility], Work/School Release, Smoking Cessation Medications and DC Order Prescriptions: New acetaminophen 325 mg Tablet 650 mg PO Q6 PRN (Reason: pain) Qty: 30 RF: 0 lidocaine 5 % Adhesive Patch,Medicated 1 patch transdermal QAM Qty: 15 RF: 0 oxycodone-acetaminophen [Percocet] 5-325 mg tablet 1 - 2 tab PO Q6H PRN (Reason: moderate-severe pain) Qty: 14 RF: 0 methylprednisolone [Medrol (Wilber)] 4 mg tablets,dose pack See Rx Instructions .ROUTE .COMPLEX Qty: 21 RF: 0 Continued (DME) lancets [Accu-Chek Fastclix Lancet Drum] Misc See Rx Instructions .ROUTE .MEDSUPPLY Qty: 408 RF: 3 (DME) blood-glucose meter [Accu-Chek Guide Glucose Meter] Misc See Rx Instructions .ROUTE .MEDSUPPLY Qty: 1 RF: 0 (DME) Accu-Chek Guide test strips Strip See Rx Instructions .ROUTE .MEDSUPPLY Qty: 400 RF: 3 metformin 500 mg tablet extended release 24 hr 1,000 mg PO BID 90 Days Qty: 360 RF: 1 aspirin [Aspirin Low Dose] 81 mg Tablet,Delayed Release (Dr/Ec) 81 mg PO HS RF: 0 atorvastatin [Lipitor] 10 mg tablet 10 mg PO HS RF: 0 glimepiride [Amaryl] 1 mg tablet 2 mg PO HS RF: 0 Discharge Orders: Discharge Order (Routine); Ordered 08/19/21 Ordered By: Shannon Markham Admission Data Admit Date/Time: 08/18/21 17:09 Attending Provider: Shannon Markham Admit Provider: Riley Smith Primary Care Provider: Allen Kerr III Other Providers: Riley Smith Other Interventions: Discharge Summary Assessment (RN) Last Done: 08/19/21 13:14 Coding Level of Care Code 98491 OBS Care - Discharge Diagnoses Protrusion of lumbar intervertebral disc M51.26 Low back pain M54.50 Cervical stenosis of spinal canal M48.02 Smoker F17.200 Type 2 diabetes mellitus E11.9 Dyslipidemia E78.5
== END 2021-08-19 14:27 | disposition home or self-care (01) ==
LOC: 3E 09:26 → ED 09:26 → SUATTDRO 17:09 → 3E 18:12